=== PATIENT | female | born 1955 | race Caucasian/White ===

== ENCOUNTER 2021-02-13 17:48 | Emergency (ER) | payer MEDICAID ==
[~2021-02-13] VITALS: Ht 157.5 cm; Wt 60.3 kg
--- NOTE | 2021-02-13 18:10 | NUR ---
THE PATIENT IS [id number], C/O PANIC ATTACK. IN ROOM AIR AND DENIES SOB. RESPIRATION REGULAR AND UNLABORED. WILL CONTINUE TO MONITOR THE PATIENT.
[2021-02-13 18:17] LABS: BASOPHILS # (AUTO) 0.1 /CMM (0.0-0.2); HEMATOCRIT 42 % (33-45); HEMOGLOBIN 13.9 g/dL (11.5-14.8); LYMPHOCYTES # (AUTO) 1.3 /CMM (0.8-4.8); LYMPHOCYTES % (AUTO) 13.4 % (20.0-44.0); MEAN CORPUSCULAR HGB CONC 33 g/dl (31.0-36.0); MEAN CORPUSCULAR VOLUME 89 fL (82-100); MONOCYTES # (AUTO) 0.6 /CMM (0.1-1.30); MONOCYTES % (AUTO) 5.5 % (2.0-12.0); NEUTROPHILS % (AUTO) 80.1 % (43.0-81.0); PLATELET COUNT (AUTO) 286 /CMM (150-450); RED BLOOD CELL COUNT(AUTO) 4.72 MIL/uL (4.0-5.2)
[2021-02-13] MEDS ORDERED: ACETAMINOPHEN 325 MG TABLET ONE (18:22)
[2021-02-13 18:30] LABS: ALANINE AMINOTRANSFERASE 21 U/L (12-78); ALBUMIN 4.4 g/dL (3.4-5.0); ALKALINE PHOSPHATASE 107 U/L (46-116); ASPARTATE AMINOTRANSFERASE 21 U/L (15-37); BILIRUBIN,DIRECT 0.1 mg/dL (0.0-0.2); BILIRUBIN,TOTAL 0.4 mg/dL (0.2-1.0); CALCIUM, SERUM 9.4 mg/dL (8.5-10.1); CARBON DIOXIDE 24 mmol/L (21-32); CHLORIDE 107 mmol/L (98-107); CREATININE 1.2 mg/dL (0.6-1.3); GLUCOSE 125 mg/dL (74-106); POTASSIUM 3.7 mmol/L (3.5-5.1); SODIUM SERUM 143 mmol/L (136-145); TOTAL PROTEIN, SERUM 8.3 g/dL (6.4-8.2); UREA NITROGEN, BLOOD 21 mg/dL (7-18)
[2021-02-13] MEDS ORDERED: ACETAMINOPHEN 325 MG TABLET PO ONE (18:30)
[2021-02-13 18:33] LABS: ACETAMINOPHEN < 10 ug/ml (10-30); ALCOHOL, BLOOD 0 mg/dL (0-0)
--- NOTE | 2021-02-13 18:38 | NUR ---
THE PATIENT ALERT AND ORIENTED X4. DENIES PAIN. RESPIRATION REGULAR AND UNLABORED. DENIES SOB.
--- NOTE | 2021-02-13 18:38 | NUR ---
URINE COLLECTED AND SENT TO THE LAB
[2021-02-13 18:41] LABS: BILIRUBIN,URINE Negative (NEGATIVE); COLOR,URINE YELLOW (YELLOW); LEUKOCYTE ESTERASE ,URINE Trace (NEGATIVE); NITRITE, URINE Negative (NEGATIVE); PROTEIN,URINE Trace mg/dl (NEGATIVE); UGLUCOSE Negative (NEGATIVE); UROBILINOGEN,URINE 0.2 EU/dL (0.2)
[2021-02-13 18:52] LABS: BACTERIA,URINE Rare /HPF (None Seen)
[2021-02-13 18:53] LABS: MUCUS,URINE Few /LPF (None Seen)
--- NOTE | 2021-02-13 18:57 | NUR ---
PATIENT STS SHE LIVES AT [facility]
--- NOTE | 2021-02-13 18:58 | NUR ---
[facility] [address] [place] [address] SPOKE TO ELISE CHADWICK AND CONFIRMED THAT THE PATIENT LIVES THERE.
[2021-02-13] MEDS ORDERED: CEPHALEXIN MONOHYDRATE 500 MG CAPSULE PO ONE (19:30)
--- NOTE | 2021-02-13 19:34 | NUR ---
CLINICAL AND FACESHEET FAXED TO [facility] INTAKE FOR VOLUNTARY PSYCH ADMISSION.
--- NOTE | 2021-02-14 00:32 | NUR ---
PT ASLEEP, NO ACUTE DISTRESS NOTED, RESP EVEN AND UNLABORED. NO PAIN OR DISCOMFORT NOTED AT THIS TIME. CALL LIGHT WITHIN REACH. 1:1 SITTER AT BEDSIDE FOR TP SAFETY.
--- NOTE | 2021-02-14 05:18 | NUR ---
TRANSFER INFORMATION: PT ACCEPTED AT [facility] ACCEPTING [facility] PHONE NUMBER FOR REPORT EXT [phone]
--- NOTE | 2021-02-14 05:25 | NUR ---
[facility] CALLED FOR TRANSPORT. ON HOLD FOR GREATER THAN >30 MINUTES.
--- NOTE | 2021-02-14 06:01 | NUR ---
[facility] CALLED FOR TRANSPORT. ETA [phone]
--- NOTE | 2021-02-14 08:52 | NUR ---
REPORT GIVEN TO NURSE TAMAYO.
--- NOTE | 2021-02-14 08:55 | NUR ---
THE PATIENT REFUSED ORDERED [facility] DESPITE EXPLAINING RISKS AND BENEFITS. DR DIANE AWARE.
--- NOTE | 2021-02-14 10:01 | NUR ---
REPORT GIVEN TO EMT FOR PT TRANSFER TO [facility].
--- NOTE | 2021-02-14 10:01 | NUR ---
Patient discharged to [facility] in stable condition. Written and verbal after care instructions given. Patient verbalizes understanding of instruction. PT TRANSPORTED OUT OF UNIT BY [facility] IN STABLE CONDITION
[2021-02-14 10:02] VITALS: BP 117/88
== END 2021-02-14 10:03 ==
LOC: ER 17:57
DX: F41.9 Anxiety disorder, unspecified (principal); R45.851 Suicidal ideations; F31.9 Bipolar disorder, unspecified; Z20.822 Contact with and (suspected) exposure to COVID-19; N39.0 Urinary tract infection, site not specified; G20 Parkinson's disease; Z79.899 Other long term (current) drug therapy; I10 Essential (primary) hypertension; E78.5 Hyperlipidemia, unspecified; R51.9 Headache, unspecified; Z91.013 Allergy to seafood
CPT/HCPCS: 36415; 71045; 80048; 80076; 80143; 80307; 80320; 81001; 85025; 87086; 87426; 93005; 99285; C9803; G0480